=== PATIENT | male | born 1965 | race Two or more races ===

== ENCOUNTER → 2021-09-02 | Outpatient (CLI) | payer MEDICAID ==
[2021-09-02 11:24] LABS: Albumin 3.8 g/dL (3.4-5.0); Bilirubin, Direct 0.1 mg/dL (0-0.2)
[2021-09-02 11:27] LABS: Bilirubin, Total 0.6 mg/dL (0.2-1.0); Total Protein 7.8 g/dL (6.4-8.2)
== END | disposition home or self-care (01) ==
LOC: LAB 10:12
PROVIDERS: ATTEND Internal Medicine
DX: R73.03 Prediabetes (principal); E78.5 Hyperlipidemia, unspecified
CPT/HCPCS: 36415; 80076; 82043

== ENCOUNTER → 2021-10-20 | Outpatient (CLI) | payer MEDICAID | END | disposition home or self-care (01) | LOC: LAB 13:57 | PROVIDERS: ATTEND Internal Medicine | DX: M10.9 Gout, unspecified (principal) | CPT/HCPCS: 36415; 84550; 85652 ==